=== PATIENT | female | born 1950 | race Caucasian/White ===

== ENCOUNTER → 2018-05-04 | Outpatient (CLI) | payer OTHER ==
[~2018-05-04] MED LIST: AUGMENTIN 875875 MG PO; CARDIZEM CD180 MG PO; CHEST CONGESTI400 MG PO; COUMADIN 2.5MG2.5 M1 PO; COUMADIN 5 MG TA5 M1 PO; DIFLUCAN150 MG PO; ELIQUIS5 MG PO; FLECAINIDE ACET50 M1 PO; INDERAL LA120 M1 PO; INDERAL LA80 MG PO; LEVAQUIN 500 M500 M2 PO; PAXIL20 MG PO; PREDNISONE 20 M20 MG PO; PRILOSEC20 MG PO; PROAIR HFA8.5 GM INH; PROBIOTIC1 EAC1 PO; PROMETHAZINE D480 ML PO; TESSALON PERLE100 MG PO; VITAMIN D1000 UNI1 PO
--- NOTE | 2018-05-04 16:44 | EKG ---
[place] [address] ELECTROCARDIOGRAM REPORT Name: DIAN LOUISE Room: [facility]#: [id number] Admission: 05/04/18 Attend Phys: Derian Soto MD Discharge: Date of : 48 Report #: [id number] THIS REPORT FOR: //name// [facility] Test Date: 2018-05-04 Test Time: 12:54:32 Pat Name: DIAN LOUISE Department: Room: Gender: F Amortization Clerk: : 1950 Requested By: Derian Soto Order Number: [id number] Reading : Akash Patino Measurements Intervals [place] Rate: 61 P: 153 NY: 250 QRS: 1 QRSD: 115 T: 8 QT: 479 QTc: 483 Interpretive Statements Sinus or ectopic atrial rhythm Prolonged [place] interval Nonspecific intraventricular conduction delay Compared to ECG 07/11/2015 09:01:1 First degree AV block now present Intraventricular conduction delay now present Atrial fibrillation no longer present Myocardial infarct finding no longer present Electronically Signed On 05-04-2018 16:43:51 ENGINEERING TECHNOLOGY INSTRUCTOR by Akash Patino [email or web address] <ELECTRONICALLY SIGNED> By: Akash Patino MD, [facility] 05/04/18 1643 1254 1254 Akash Patino MD, [facility] /EPI
--- NOTE | 2018-05-04 18:01 | NUR ---
PATIENT SEEN FOR CARDIOVERSION FOR DR. MCKEON. HOOKED PATIENT UP TO MONITOR ANF PATIENT IN SINUS RHYTHM. EKG DONE FOR CONFIRMATION. SHOWN TO DR. MCKEON AND Melissa VALLE STATED OK TO SEND PATIENT HOME WITHOUT CARDIOVERSION DUE TO SINUS RHYTHM. NO PROCEDURE DONE EXEPT EKG.
== END ==
LOC: M.CL 12:00
DX: I48.0 Paroxysmal atrial fibrillation (principal); D68.61 Antiphospholipid syndrome; E11.9 Type 2 diabetes mellitus without complications; G43.909 Migraine, unspecified, not intractable, without status migrainosus; Z90.710 Acquired absence of both cervix and uterus; Z88.8 Allergy status to other drugs, medicaments and biological substances

== ENCOUNTER 2018-08-19 13:32 | Emergency (ER) | payer OTHER ==
[~2018-08-19] VITALS: Ht 167.6 cm; Wt 113.4 kg
[2018-08-19] MEDS ORDERED: ACETAMINOPHEN-1 EAC1 PO (15:40)
[2018-08-19 16:24] VITALS: BP 137/75
== END 2018-08-19 16:15 | disposition home or self-care (01) ==
LOC: M.ERS 13:32
DX: S16.1XXA Strain of muscle, fascia and tendon at neck level, initial encounter (principal); S00.83XA Contusion of other part of head, initial encounter; J34.89 Other specified disorders of nose and nasal sinuses; I48.91 Unspecified atrial fibrillation; E11.9 Type 2 diabetes mellitus without complications; M32.9 Systemic lupus erythematosus, unspecified; Z88.1 Allergy status to other antibiotic agents; Z88.8 Allergy status to other drugs, medicaments and biological substances; Z86.718 Personal history of other venous thrombosis and embolism; W18.39XA Other fall on same level, initial encounter; Y93.89 Activity, other specified; Y92.89 Other specified places as the place of occurrence of the external cause; Y99.8 Other external cause status

== ENCOUNTER 2018-11-17 21:57 | Emergency (ER) | payer OTHER ==
[~2018-11-17] VITALS: Ht 170.2 cm; Wt 113.0 kg
[~2018-11-17 21:57] MED LIST changes: +ACETAMINOPHEN-1 EAC1 PO
[2018-11-17 22:18] LABS: ABSOLUTE BASOPHILS 0.1 thou/uL (0.0-0.2); ABSOLUTE EOSINOPHILS 0.3 thou/uL (0.0-0.7); ABSOLUTE LYMPHOCYTES 2.8 thou/uL (0.8-5.3); ABSOLUTE MONOCYTES 0.7 thou/uL (0.0-1.2); ABSOLUTE NEUTROPHILS 5.6 thou/uL (1.6-8.1); BASOPHILS 1.2 %; EOSINOPHILS 2.8 %; HEMATOCRIT 41.4 % (37.0-47.0); LYMPHOCYTES 29.5 %; MCH 31.2 pg (26.0-34.0); MCHC 33.9 g/dL (28.0-37.0); MCV 92.1 fL (80.0-100.0); MONOCYTES 7.2 %; MPV 8.7 fl. (7.2-11.1); NUCLEATED RBCS 0 /100WBC; PLATELET COUNT* 235 thou/uL (150-400); POLYS 59.3 %; WBC 9.5 thou/uL (4.0-11.0)
[2018-11-17 22:31] LABS: URINE BILIRUBIN NEGATIVE (Negative); URINE BLOOD 1+ (Negative); URINE CLARITY CLEAR; URINE COLOR YELLOW; URINE GLUCOSE-RANDOM NEGATIVE (Negative); URINE KETONES NEGATIVE (Negative); URINE LEUKOCYTES-REFLEX TRACE (Negative); URINE NITRITE-REFLEX NEGATIVE (Negative); URINE PROTEIN 1+ (Negative); URINE SPECIFIC GRAVITY 1.025 (1.005-1.030); URINE UROBILINOGEN 0.2 E.U./dl (0.2-1.0)
[2018-11-17 22:33] LABS: ANION GAP 9 mmol/L (7-16); BUN 18 mg/dL (7-18); CHLORIDE 107 mmol/L (98-107); CO2 29 mmol/L (21-32); GLUCOSE 128 mg/dL (70-99); POTASSIUM 3.9 mmol/L (3.5-5.1); SODIUM 145 mmol/L (136-145)
[2018-11-17 22:39] LABS: PROTIME 10.3 Seconds (9.20-11.50)
[2018-11-17 22:39] LABS: SQUAMOUS 0-3 Few /LPF (0-3); URINE WBC-REFLEX 6-15 Few /HPF (0-5)
[2018-11-17 22:40] LABS: BACTERIA-REFLEX 1-9 Few /HPF (None Seen); CASTS None Seen /LPF (None Seen); CRYSTALS None Seen /LPF (None Seen); URINE RBC 0-2 Rare /HPF (0-2)
[2018-11-17 22:51] LABS: ALBUMIN 3.2 g/dL (3.4-5.0); ALKALINE PHOSPHATASE 86 U/L (46-116); NT-PRO BRAIN NAT PEPTIDE 312 pg/mL (<300); SGOT 16 U/L (15-37); SGPT 23 U/L (30-65); TOTAL BILIRUBIN 0.7 mg/dL (<0.1-1.0); TOTAL PROTEIN 7.6 g/dL (6.4-8.2); TROPONIN-I LEVEL <0.06 ng/mL (<0.06)
[2018-11-18 02:06] VITALS: BP 150/91
== END 2018-11-18 02:08 | disposition home or self-care (01) ==
LOC: M.ERS 21:57
PROVIDERS: Emergency Medicine
DX: I48.92 Unspecified atrial flutter (principal); E11.9 Type 2 diabetes mellitus without complications; I42.9 Cardiomyopathy, unspecified; Z88.1 Allergy status to other antibiotic agents; Z91.048 Other nonmedicinal substance allergy status; Z88.8 Allergy status to other drugs, medicaments and biological substances; Z86.718 Personal history of other venous thrombosis and embolism

== ENCOUNTER → 2019-04-24 | Outpatient (CLI) | payer OTHER ==
--- NOTE | 2019-04-24 13:45 | 2DMMODE ---
[place] [address] 2 D/M-MODE ECHOCARDIOGRAM Name: DIAN LOUISE Room: [facility]#: [id number] Admission: 04/24/19 Attend Phys: Derian Soto, Discharge: Date of : 48 Date of Service: 04/24/19 1345 Report #: [id number] THIS REPORT FOR: //name// APPROVED REPORT Study performed: 04/24/2019 11:10:48 EXAM: Comprehensive 2D, Doppler, and color-flow Echocardiogram Patient Location: Out-Patient BSA: 2.19 HR: 57 bpm BP: 131/60 mmHg Other Information Study Quality: Good Indications Atrial Fibrillation 2D Dimensions IVSd: 11.19 (7-11mm) LVOT Diam: 19.87 (18-24mm) LVDd: 44.06 mm PWd: 10.06 (7-11mm) Ascending Ao: 32.37 (22-36mm) LVDs: 26.77 (25-40mm) Aortic Root: 27.70 mm Volumes Left Atrial Volume (Systole) LA ESV Index: 18.50 mL/m2 Aortic Valve AoV Peak Mark.: 1.36 m/s AO Peak Gr.: 7.36 mmHg LVOT Max P.51 mmHg AO Mean Gr.: 4.25 mmHg LVOT Mean P.84 mmHg LVOT Max V: 1.06 m/s AO V2 VTI: 31.64 cm LVOT Mean V: 0.60 m/s BOYD (VTI): 2.54 cm2 LVOT V1 VTI: 25.94 cm Mitral Valve E/A Ratio: 0.76 MV Decel. Time: 227.91 ms MV E Max Mark.: 0.47 m/s MV PHT: 66.09 ms MVA (PHT): 3.33 [place]2 [place] [address] 2 D/M-MODE ECHOCARDIOGRAM Name: DIAN LOUISE Room: [facility]#: [id number] Admission: 04/24/19 Attend Phys: Derian Soto, Discharge: Date of : 48 Date of Service: 04/24/19 1345 Report #: [id number] TDI E/Lateral E': 5.22 E/Medial E': 5.88 Medial E' Mark.: 0.08 m/s Lateral E' Mark.: 0.09 m/s Pulmonary Valve PV Peak Mark.: 1.02 m/s PV Peak Gr.: 4.19 mmHg Tricuspid Valve RAP Estimate: 5.00 mmHg TR Peak Gr.: 16.40 mmHg RVSP: 21.40 mmHg PA Pressure: 21.40 mmHg Left Ventricle The left ventricle is normal size. There is normal LV segmental wall motion. There is normal left ventricular wall thickness. Left ventricular systolic function is normal. The left ventricular ejection fraction is within the normal range. LVEF is 55-60%. Grade I - abnormal relaxation pattern. Right Ventricle The right ventricle is normal size. The right ventricular systolic function is normal. Atria The left atrium size is normal. The right atrium size is normal. Aortic Valve The aortic valve is normal in structure. No aortic regurgitation is present. There is no aortic valvular stenosis. Mitral Valve The mitral valve is normal in structure. There is no mitral valve regurgitation noted. No evidence of mitral valve stenosis. Tricuspid Valve The tricuspid valve is normal in structure. Mild tricuspid regurgitation. estimated pa pressure 20 mm Hg Pulmonic Valve The pulmonary valve is normal in structure. There is no pulmonic valvular regurgitation[place] [address] 2 D/M-MODE ECHOCARDIOGRAM Name: DIAN LOUISE Room: [facility]#: [id number] Admission: 04/24/19 Attend Phys: Derian Soto, Discharge: Date of : 48 Date of Service: 04/24/19 1345 Report #: [id number] The aortic root is normal in size. IVC is normal in size and collapses >50% with inspiration. Pericardium There is no pericardial effusion. <Conclusion> Left ventricular systolic function is normal. The left ventricular ejection fraction is within the normal range. <ELECTRONICALLY SIGNED> By: Jamie Ro MD, FACC 04/24/19 1345 1345 Jamie Ro MD, FACC /INF
== END ==
LOC: M.CRD 11:00
DX: I36.1 Nonrheumatic tricuspid (valve) insufficiency (principal); I48.0 Paroxysmal atrial fibrillation

== ENCOUNTER → 2020-07-30 | Outpatient (CLI) | payer OTHER | LOC: M.WC 12:48 | PROVIDERS: ATTEND Podiatrist Foot & Ankle Surgery | DX: E11.621 Type 2 diabetes mellitus with foot ulcer (principal); L97.511 Non-pressure chronic ulcer of other part of right foot limited to breakdown of skin; L84 Corns and callosities; E11.42 Type 2 diabetes mellitus with diabetic polyneuropathy; I87.2 Venous insufficiency (chronic) (peripheral); K21.9 Gastro-esophageal reflux disease without esophagitis; M20.40 Other hammer toe(s) (acquired), unspecified foot; Z90.710 Acquired absence of both cervix and uterus ==

== ENCOUNTER → 2020-08-13 | Outpatient (CLI) | payer OTHER | LOC: M.WC 12:58 | PROVIDERS: ATTEND Podiatrist Foot & Ankle Surgery | DX: E11.621 Type 2 diabetes mellitus with foot ulcer (principal); L97.511 Non-pressure chronic ulcer of other part of right foot limited to breakdown of skin; L84 Corns and callosities; L03.031 Cellulitis of right toe; B35.1 Tinea unguium; E11.42 Type 2 diabetes mellitus with diabetic polyneuropathy; I87.2 Venous insufficiency (chronic) (peripheral); K21.9 Gastro-esophageal reflux disease without esophagitis; M20.41 Other hammer toe(s) (acquired), right foot; Z90.710 Acquired absence of both cervix and uterus ==

== ENCOUNTER → 2020-08-20 | Outpatient (CLI) | payer OTHER | LOC: M.WC 12:38 | PROVIDERS: ATTEND Podiatrist Foot & Ankle Surgery | DX: E11.621 Type 2 diabetes mellitus with foot ulcer (principal); L97.512 Non-pressure chronic ulcer of other part of right foot with fat layer exposed; L84 Corns and callosities; L03.031 Cellulitis of right toe; B35.1 Tinea unguium; E11.40 Type 2 diabetes mellitus with diabetic neuropathy, unspecified; I87.2 Venous insufficiency (chronic) (peripheral); K21.9 Gastro-esophageal reflux disease without esophagitis; M20.41 Other hammer toe(s) (acquired), right foot ==

== ENCOUNTER 2020-08-26 21:13 | Inpatient (IN) | payer OTHER ==
[~2020-08-26] VITALS: Ht 167.6 cm; Wt 101.6 kg
[2020-08-26 21:16] VITALS: BP 152/64
[2020-08-26 21:48] LABS: URINE BILIRUBIN NEGATIVE (Negative); URINE BLOOD 1+ (Negative); URINE CLARITY CLEAR; URINE COLOR YELLOW; URINE GLUCOSE-RANDOM NEGATIVE (Negative); URINE KETONES NEGATIVE (Negative); URINE LEUKOCYTES-REFLEX NEGATIVE (Negative); URINE NITRITE-REFLEX NEGATIVE (Negative); URINE PROTEIN 1+ (Negative); URINE SPECIFIC GRAVITY 1.015 (1.005-1.030); URINE UROBILINOGEN 0.2 E.U./dl (0.2-1.0)
[2020-08-26 21:50] LABS: BE 0.2 mmol/L (-2 to +3); PCO2 32.5 mmHg (35.0-45.0); PO2 65.1 mmHg (75.0-100.0)
[2020-08-26 21:54] LABS: SQUAMOUS 0-3 Few /LPF (0-3)
[2020-08-26 21:55] LABS: BACTERIA-REFLEX None Seen /HPF (None Seen); CRYSTALS None Seen /LPF (None Seen); HYALINE CASTS 0-3 Few /LPF (None Seen); URINE RBC 3-10 Few /HPF (0-2); URINE WBC-REFLEX 0-5 Rare /HPF (0-5)
[2020-08-26 21:56] LABS: HEMOGLOBIN 13.2 gm/dL (12.0-15.0); MCH 30.4 pg (26.0-34.0); MCHC 32.9 g/dL (28.0-37.0); MCV 92.5 fL (80.0-100.0); MPV 8.9 fl. (7.2-11.1); NUCLEATED RBCS 0 /100WBC; PLATELET COUNT* 245 thou/uL (150-400); RBC 4.33 mil/uL (4.20-5.00); RDW-CV 13.6 % (10.5-14.5); WBC 12.9 thou/uL (4.0-11.0)
[2020-08-26 21:56] LABS: MUCUS None Seen strn/LPF (None Seen)
[2020-08-26 22:03] LABS: CALCIUM 8.3 mg/dL (8.5-10.1); CREATININE 1.1 mg/dL (0.6-1.3); POTASSIUM 3.7 mmol/L (3.5-5.1)
[2020-08-26 22:07] LABS: ALBUMIN 2.9 g/dL (3.4-5.0); MAGNESIUM 1.6 mg/dL (1.8-2.4); TOTAL BILIRUBIN 1.2 mg/dL (<0.1-1.0); TOTAL PROTEIN 7.3 g/dL (6.4-8.2)
[2020-08-26 22:26] LABS: ABSOLUTE LYMPHOCYTES 0.8 thou/uL (0.8-5.3); ABSOLUTE MONOCYTES 0.4 thou/uL (0.0-1.2); ABSOLUTE NEUTROPHILS 11.7 thou/uL (1.6-8.1)
[2020-08-26 22:27] LABS: PLATELET ESTIMATE ADEQUATE
[2020-08-26] MEDS ORDERED: ZOLOFT25 MG PO (23:08)
[2020-08-27] VITALS (15 sets, daily range): BP systolic 114–154; BP diastolic 45–96
[2020-08-27 00:19] LABS: INR 1.1; PROTIME 11.7 Seconds (9.20-11.50)
--- NOTE | 2020-08-27 08:12 | NUR ---
SPOKE WITH AT BEDSIDE AND HE STATED HE CANT GO HOME BECAUSE HIS REMINDS HIM TO EAT EVERY 3 HOURS AND CHECK BLOOD GLUCOSE. INFORM THAT IN THE PT'S CURRENT CONDITION OF AMS SHE WILL NOT BE ABLE TO THAT. STATED THAT HIS CHILDREN LIVE OUT OF STATE AND THEY HAVE NO FAMILY IN STATE TO HELP WITH CARE. PT GAVE PHONE NUMBER OF NEIGHBOR CHAPARRO MARTINEZ [phone] WHO MAYBE WILLING TO HELP OUT.
--- NOTE | 2020-08-27 11:24 | EKG ---
[place] [address] ELECTROCARDIOGRAM REPORT Name: DIAN LOUISE Room: [address] IN ..#: [id number] Admission: 08/27/20 Attend Phys: Julianna Leahy, Discharge: Date of : 48 Date of Service: 08/26/202115 Report #: [id number] THIS REPORT FOR: //name// [facility] ED Test Date: 2020-08-26 Test Time: 21:16:45 Pat Name: DIAN LOUISE Department: Room: Gender: F Parts Identifier: CO : 1950 Requested By: Zee Marroquin Order Number: [id number] MD: Jamie Ro Measurements Intervals [place] Rate: 70 P: 39 UT: 230 QRS: 2 QRSD: 110 T: -3 QT: 586 QTc: 633 Interpretive Statements Sinus rhythm Prolonged [place] interval Borderline low voltage, extremity leads septal infarct, old Prolonged QT interval Compared to ECG 11/17/2018 23:10:22 Atrial flutter no longer present Myocardial infarct finding still present Electronically Signed On 08-27-2020 11:24:23 CDT by Jamie Ro [email or web address] <ELECTRONICALLY SIGNED> By: Jamie Ro MD, [facility] 08/27/20 1124 15 15 Jamie Ro MD, [facility] /EPI
--- NOTE | 2020-08-27 11:41 | NUR ---
Spoke with (Avelino) over the phone. Introduced role of CM. Patient is currently a PUI for COVID-19 and the is staying in the room with the patient at this time. Patient does currently reside at home with her and per nursing is the caregiver to the . There are a few stairs to get into the house. Patient is currently on 3L NC and has a sitter due to AMS and pulling at equipment. Therapies to be ordered for patient to assess any discharge needs. Patient does have a PCP-Stefani Cleveland MD-[phone]. Patient does use a cane to ambulate and patient was able to complete ADL's independently prior to admission. Patient is able to drive. No DPOA paperwork. No hx of HH, SNF or Rehab. stated that in 2013 they had in home caregivers for a short period of time (doesn't recall company). Therapies to be ordered for patient to help with discharge planning. Possible downgrade to tele later today. Avelino Thompson () [phone]-cell CM to continue to follow for safe dc planning.
--- NOTE | 2020-08-27 14:48 | NUR ---
REPORT GIVEN TO SANDHYA DYKES.
--- NOTE | 2020-08-27 15:30 | NUR ---
PT TRANSFERRED TO TELE ROOM 219 VIA REPORT FROM SHIRA BUSINESS DEVELOPMENT REPRESENTATIVE.
[2020-08-28 00:16] VITALS: BP 135/63
--- NOTE | 2020-08-28 03:58 | NUR ---
ASSUMED CARE OF PT AT 1900. PT WAS ALERT AND ORIENTED X'S 3. SHE WAS CONFUSED TO SITUATION. PT WAS ALSO VERY SLEEPY. AT ABOUT 0100, WHILE CHECKING ON THE PT. SHE WAS COMPLETELY ORIENTED AND FULLY AWAKE. VSS. PERRLA. NO COMPLAINTS OF PAIN. PT IS IN SINUS RYTHM ON THE TELEMETRY. PT IS RESTING COMFORTABLY IN BED. RESPIRATIONS ARE EVEN AND NONLABORED. WILL CONTINUE TO MONITOR PT.
[2020-08-28 04:21] LABS: HEMATOCRIT 36.7 % (37.0-47.0); HEMOGLOBIN 12.5 gm/dL (12.0-15.0); MCV 91.3 fL (80.0-100.0); MPV 9.4 fl. (7.2-11.1); RBC 4.03 mil/uL (4.20-5.00); RDW-CV 13.8 % (10.5-14.5); WBC 10.1 thou/uL (4.0-11.0)
[2020-08-28 04:29] LABS: CALCIUM 8.1 mg/dL (8.5-10.1); CREATININE 0.9 mg/dL (0.6-1.3)
[2020-08-28 05:32] VITALS: BP 134/71
[2020-08-28 08:05] VITALS: BP 130/82
[2020-08-28 12:00] VITALS: BP 127/60
--- NOTE | 2020-08-28 13:24 | NUR ---
PLAN OF CARE: PT IS AN ICU TX. PT CURRENTLY IN 2 ABT'S. PT MAY BENEFIT FROM HH AT D/C. CM WILL REMAIN AVAILABLE TO ASSIST AND FOLLOW NEEDED.
--- NOTE | 2020-08-28 14:15 | NUR ---
RIGHT BASISLIC VESSEL ACCESSED FOR 4 GUATEMALAN SINGL LUMEN PICC. LINE PRE-TRIMMED TO 45CM AND ADVANCED TO THE ZERO GILBERTO WITH NO RESISTANCE MET. UPPER ARM CIRCUMFERENCE ABOVE INSERTION SITE= 15". SHERLOCK MAGNET AND 3CG CONFIRMATION OF TIP TERMINATION AT THE CAVOATRIAL JUNCTION APPRECIATED. GUIDEWIRE REMOVED, LINE FLUSHED AND INSERTION SITE DRESSED. REPORT GIVEN TO ARUN DYKES.
[2020-08-28 16:00] VITALS: BP 115/57
[2020-08-28 20:00] VITALS: BP 133/64
--- NOTE | 2020-08-28 20:00 | NUR ---
RECEIVED REPORT AND ASSUMED CARE OF PT, ASSESSMENT COMPLETED. RESTING IN BED WATCHING TV. C/O HEADACHE, WILL GIVE TYLENOL. RT FOOT 4TH TOE NOTED TO BE EDEMATOUS, WOUND NOTE TO BOTTOM OF TOE. TELEMETRY ON SHOWING SR WITH 1ST AVB. WILL CONT TO MONITOR AND ASSIST NEEDED.
[2020-08-29] VITALS: BP 137/61
[2020-08-29 04:26] VITALS: BP 141/66
--- NOTE | 2020-08-29 05:43 | NUR ---
AWAKE OCC DURING NIGHT. ASSISTED TO BSC ATTEMPTING TO HAVE BOWEL MOVEMENT. NO CHANGE IN ASSESSMENT. TYLENOL EFFECTIVE FOR C/O VELAZQUEZ. HS GOALS OF REST AND SAFETY ACHIEVED. HOURLY ROUNDING OBSERVED.
[2020-08-29 05:45] LABS: HEMATOCRIT 34.6 % (37.0-47.0); HEMOGLOBIN 11.8 gm/dL (12.0-15.0); MCH 31.2 pg (26.0-34.0); MCV 91.8 fL (80.0-100.0); MPV 8.7 fl. (7.2-11.1); RBC 3.77 mil/uL (4.20-5.00); RDW-CV 13.9 % (10.5-14.5); WBC 7.7 thou/uL (4.0-11.0)
[2020-08-29 05:59] LABS: CALCIUM 8.6 mg/dL (8.5-10.1); CREATININE 0.9 mg/dL (0.6-1.3); POTASSIUM 3.7 mmol/L (3.5-5.1)
[2020-08-29 07:55] VITALS: BP 177/63
--- NOTE | 2020-08-29 08:30 | 2DMMODE ---
[place] [address] 2 D/M-MODE ECHOCARDIOGRAM Name: DIAN LOUISE Room: [address] IN [facility]#: [id number] Admission: 08/27/20 Attend Phys: Julianna Leahy, Discharge: Date of : 48 Date of Service: 08/29/20 0830 Report #: [id number] THIS REPORT FOR: cc: Megha Ko MD, Marjon MD Liston, Michael J. MD [facility] ~ ADDENDUM APPROVED REPORT Study performed: 08/28/2020 14:53:58 EXAM: Comprehensive 2D, Doppler, and color-flow Echocardiogram Patient Location: In-[facility] Status: routine BSA: 2.05 HR: 63 bpm BP: 127/60 mmHg Rhythm: NSR Other Information Study Quality: Good Indications Congestive Heart Failure 2D Dimensions IVSd: 10.03 (7-11mm) LVOT Diam: 21.12 (18-24mm) LVDd: 50.38 mm PWd: 9.87 (7-11mm) Ascending Ao: 34.22 (22-36mm) LVDs: 26.56 (25-40mm) Aortic Root: 30.19 mm Aortic Valve AoV Peak Mark.: 1.55 m/s AO Peak Gr.: 9.64 mmHg LVOT Max P.28 mmHg AO Mean Gr.: 5.04 mmHg LVOT Mean P.48 mmHg LVOT Max V: 1.25 m/s AO V2 VTI: 30.75 cm LVOT Mean V: 0.70 m/s BOYD (VTI): 2.78 cm2 LVOT V1 VTI: 24.41 cm Mitral Valve E/A Ratio: 1.41 MV Decel. Time: 252.78 ms MV E Max Mark.: 0.72 m/[place] [address] 2 D/M-MODE ECHOCARDIOGRAM Name: DIAN LOUISE Room: [address] IN ..#: [id number] Admission: 08/27/20 Attend Phys: Julianna Leahy, Discharge: Date of : 48 Date of Service: 08/29/20 0830 Report #: [id number] MV PHT: 73.31 ms MVA (PHT): 3.00 cm2 TDI E/Lateral E': 6.55 E/Medial E': 6.55 Medial E' Mark.: 0.11 m/s Lateral E' Mark.: 0.11 m/s Pulmonary Valve PV Peak Mark.: 1.13 m/s PV Peak Gr.: 5.11 mmHg Tricuspid Valve RAP Estimate: 5.00 mmHg TR Peak Gr.: 26.98 mmHg RVSP: 31.00 mmHg PA Pressure: 31.00 mmHg Left Ventricle The left ventricle is normal size. There is normal LV segmental wall motion. There is normal left ventricular wall thickness. Left ventricular systolic function is normal. LVEF is 55-60%. Grade II - pseudonormal filling dynamics. Right Ventricle The right ventricle is normal size. The right ventricular systolic function is normal. Atria Left atrium is mildly dilated. The right atrium size is normal. Aortic Valve Mild aortic valve sclerosis. No aortic regurgitation is present. There is no aortic valvular stenosis. Mitral Valve The mitral valve is normal in structure. There is no mitral valve regurgitation noted. No evidence of mitral valve stenosis. Tricuspid Valve The tricuspid valve is normal in structure. Trace tricuspid regurgitation. Borderline pulmonary hypertension. Pulmonic Valve The pulmonary valve is normal in structure. There is no pulmonic valvular [place] [address] 2 D/M-MODE ECHOCARDIOGRAM Name: DIAN LOUISE Room: [address] IN [facility]#: [id number] Admission: 08/27/20 Attend Phys: Julianna Leahy, Discharge: Date of : 48 Date of Service: 08/29/20 0830 Report #: [id number] Great Vessels The aortic root is normal in size. IVC is normal in size and collapses >50% with inspiration. Pericardium There is no pericardial effusion. <Conclusion> The left ventricle is normal size. There is normal left ventricular wall thickness. Left ventricular systolic function is normal. LVEF is 55-60%. Grade II - pseudonormal filling dynamics. There is normal LV segmental wall motion. Trace tricuspid regurgitation. Borderline pulmonary hypertension. IVC is normal in size and collapses >50% with inspiration. Left atrium is mildly dilated. <ELECTRONICALLY SIGNED> By: Derian Soto MD, FACC 08/29/20829 9 9 Derian Soto MD, FACC /INF
--- NOTE | 2020-08-29 10:11 | NUR ---
ASSUMED CARE OF PT AT 0730. PT RESTING IN BED WAITING FOR BREAKFAST. A&0X4, COMPLAINS OF PAIN TO RIGHT KNEE-TREATED WITH PRN TYLENOL WITH PARTIAL RELIEF. TRACING SB WITH FIRST DEGREE ON THE PRESCHOOL ASSISTANT DIRECTOR. ON RA SAT UPPER 90'S. DENIES ANY SHORTNESS OF BREATH. SMITH CATHETER IN PLACE-NOT INDICATED-REMOVED PER HOSPITAL PROTOCOL. PT UP WITH SBA TO BSC. PT GOAL FOR TODAY IS PAIN MGMT, MRI FOOT AND IV ABX. AM ASSESSMENT CHARTED. MEDICATIONS PER JUN. PT REPOSITIONS SELF. HOURLY ROUNDING OBSERVED. BED IN LOW POSITION. CALL LIGHT WITHIN REACH. WILL CONTINUE PLAN OF CARE.
[2020-08-29 13:40] VITALS: BP 147/72
--- NOTE | 2020-08-29 13:53 | NUR ---
PLAN OF CARE: PLAN FOR PT TO REMAIN INPT THROUGH THE WEEKEND. PT REMAINS ON 2 IV ABT'S. PRIOR TO ADMIT PT ACTIVE AND INDEPENDENT. HOWEVER PT MAY BENEFIT FROM HH AT D/C. CM WILL REMAIN AVAILABLE TO ASSIST AND FOLLOW NEEDED.
--- NOTE | 2020-08-29 14:07 | NUR ---
WOUND NURSE: PATIENT SEEN TO ADDRESS LESION ON RIHT 4TH TOE. CURRENLY NOT OPEN OR DRAINING INTACT SMALL SCAB WITH CALLOUS NOTED. MRI SUGGESTING OSTEO. SHARED THIS INFO WITH DR SANCHEZ, BONG. WILL MAINTAIN HEATER FURNACE FOR NOW UNLESS DR SANCHEZ CHOOSES OTHERWISE. WAITING TO HEAR FROM HIM.
[2020-08-29 18:30] VITALS: BP 145/77
[2020-08-29 20:00] VITALS: BP 141/90
[2020-08-30 00:28] VITALS: BP 145/87
[2020-08-30 04:42] LABS: HEMATOCRIT 37.4 % (37.0-47.0); HEMOGLOBIN 12.6 gm/dL (12.0-15.0); MCH 30.8 pg (26.0-34.0); MCHC 33.7 g/dL (28.0-37.0); MCV 91.5 fL (80.0-100.0); MPV 9.2 fl. (7.2-11.1); RBC 4.09 mil/uL (4.20-5.00); RDW-CV 13.8 % (10.5-14.5); WBC 9.1 thou/uL (4.0-11.0)
[2020-08-30 04:56] VITALS: BP 148/75
[2020-08-30 05:00] LABS: CALCIUM 8.8 mg/dL (8.5-10.1); CREATININE 0.8 mg/dL (0.6-1.3); POTASSIUM 3.7 mmol/L (3.5-5.1)
[2020-08-30 08:00] VITALS: BP 125/65
[2020-08-30 11:30] VITALS: BP 111/60
[2020-08-30 16:00] VITALS: BP 119/64
[2020-08-30 20:00] VITALS: BP 130/70
--- NOTE | 2020-08-30 20:33 | NUR ---
patient report given to maintenance supervisor 2nd shift nurse. Patient resting in room with family. IV antibiotics infusing. A&O x 4. call light with in reach.
[2020-08-31 00:38] VITALS: BP 137/71
[2020-08-31 04:06] VITALS: BP 130/59
[2020-08-31 06:21] LABS: HEMATOCRIT 35.4 % (37.0-47.0); MCHC 33.8 g/dL (28.0-37.0); MCV 91.9 fL (80.0-100.0); MPV 8.4 fl. (7.2-11.1); RBC 3.85 mil/uL (4.20-5.00); RDW-CV 14.1 % (10.5-14.5); WBC 11.1 thou/uL (4.0-11.0)
[2020-08-31 06:40] LABS: CALCIUM 8.6 mg/dL (8.5-10.1); CREATININE 1.3 mg/dL (0.6-1.3); POTASSIUM 3.6 mmol/L (3.5-5.1)
[2020-08-31 08:00] VITALS: BP 156/68
[2020-08-31 12:00] VITALS: BP 149/66
--- NOTE | 2020-08-31 15:38 | NUR ---
Patient resting in room with visiting. IV antibiotics running, bed alarm on, call light and all belongings. Continue plan of care.
[2020-08-31 16:00] VITALS: BP 145/69
[2020-08-31 20:00] VITALS: BP 138/69
--- NOTE | 2020-08-31 20:00 | NUR ---
RECEIVED REPORT AND ASSUMED CARE OF PT, ASSESSMENT COMPLETED. VISITING WITH FAMILY AND LAUGHING. TELEMETRY ON SHOWING SR WITH 1ST AVB. WILL CONT TO MONITOR AND ASSIST NEEDED.
[2020-09-01] VITALS: BP 115/52
[2020-09-01 04:00] VITALS: BP 136/57
[2020-09-01 04:45] LABS: HEMOGLOBIN 11.3 gm/dL (12.0-15.0); MCH 31.3 pg (26.0-34.0); MCHC 34.1 g/dL (28.0-37.0); MCV 91.8 fL (80.0-100.0); MPV 8.8 fl. (7.2-11.1); RBC 3.6 mil/uL (4.20-5.00); RDW-CV 13.7 % (10.5-14.5); WBC 9.1 thou/uL (4.0-11.0)
[2020-09-01 04:52] LABS: CALCIUM 8.5 mg/dL (8.5-10.1); POTASSIUM 3.8 mmol/L (3.5-5.1)
[2020-09-01 04:55] LABS: CREATININE 2.7 mg/dL (0.6-1.3)
[2020-09-01 04:57] LABS: APTT 23.4 Seconds (25.0-31.3); INR 1.1; PROTIME 11.8 Seconds (9.20-11.50)
--- NOTE | 2020-09-01 07:47 | NUR ---
SLEPT WELL TONIGHT. NPO SINCE PR FOR POSS SURGERY TODAY. ASSISTED TO BSC. ASSESSMENT UNCHANGED. TELEMETRY CONT TO SHOW SR WITH 1ST AVB. HS GOALS OF REST AND SAFETY ACHIEVED. HOURLY ROUNDING OBSERVED.
[2020-09-01 08:00] VITALS: BP 145/67
--- NOTE | 2020-09-01 13:55 | NUR ---
WOUND NURSE: PATIENT RECEIVED TOE AMPUTATION TODAY BY DR. DANIEL DPM. DRESSING IS CLEAN, DRY, AND INTACT. PATIENT WITHOUT COMPLAINTS OF PAIN OR DISCOMFORT. PATIENT INSTRUCTED ON NUTRITIONAL NEEDS, REPORTABLE SIGNS AND SYMPTOMS WITH GOOD UNDERSTAINDING ACHIEVED. SPOKE WITH DR. DANIEL DPM AND HE WANTS TO FOLLOW UP WITH PATIENT ON TUE NEXT WEEK, SHE IS SCHEDULED FOR 2PM ON 09/10/20. WILL OBTAIN PICS FOR CHART TOMORROW WHEN PLAN TO CHANGE DRESSING.
--- NOTE | 2020-09-01 14:26 | NUR ---
PLAN OF CARE: PLAN FOR THE PT TO TRANSITION TO ORAL ABT'S, AND WEAN PT OFF O2. PT YO F/U WITH PT TO DETERMINE NEED FOR HH AT D/C. PT WILL ALSO NEED A WALKER. CM WILL REMAIN AVAILABLE TO ASSIST AND FOLLOW NEEDED.
[2020-09-01 16:58] VITALS: BP 126/62
--- NOTE | 2020-09-01 18:58 | NUR ---
patient resting in room with family. IV antibiotics running. No pain in surgical foot stated. All belongings with in reach.
[2020-09-01 20:00] VITALS: BP 137/62
[2020-09-02 00:05] VITALS: BP 132/75
[2020-09-02 04:38] LABS: HEMATOCRIT 35.1 % (37.0-47.0); HEMOGLOBIN 11.7 gm/dL (12.0-15.0); MCH 30.9 pg (26.0-34.0); MCHC 33.3 g/dL (28.0-37.0); MCV 92.6 fL (80.0-100.0); MPV 9.2 fl. (7.2-11.1); RBC 3.78 mil/uL (4.20-5.00); RDW-CV 14.1 % (10.5-14.5); WBC 11.4 thou/uL (4.0-11.0)
[2020-09-02 04:47] LABS: CALCIUM 8.9 mg/dL (8.5-10.1); CREATININE 3.6 mg/dL (0.6-1.3); POTASSIUM 3.9 mmol/L (3.5-5.1)
[2020-09-02 04:51] VITALS: BP 127/61
--- NOTE | 2020-09-02 05:00 | NUR ---
PT SLEPT WELL OVERNIGHT. DRSG CDI TO RLE, TOES PINK AND WARM. UP WITH ASSIST TO BEDSIDE COMMODE OVERNIGHT VOIDING WITHOUT DIFFICULTY. HAS DENIED PAIN THIS SHIFT. DEIDRA PICC SL, ABX GIVEN ORDERED. HS ACCUCHECK 93, NO INSULIN INDICATED. AM LABS DRAWN. WOUND CARE FOLLOWING. ABLE TO USE CALL LITE AND MAKE NEEDS KNOWN. AOX4. BED ALARM ON FOR SAFETY OVERNIGHT.
[2020-09-02 07:40] VITALS: BP 142/66
[2020-09-02 11:31] VITALS: BP 126/63
[2020-09-02] MEDS ORDERED: CEPHALEXIN500 MG PO (11:54)
--- NOTE | 2020-09-02 13:58 | NUR ---
per pt, benjamin, pt "needs home with outpatient therapy...pt "doesnt want hh."
[2020-09-02 15:43] VITALS: BP 120/54
--- NOTE | 2020-09-02 17:38 | NUR ---
PT REMAINS ALERT AND ORIENTED. FLUIDS REMAIN INFUSING THROUGH RIGHT UPPER ARM PICC LINE. PT GIVEN PRN MEDICATIONS FOR NAUSEA. PT UP TO THE CHAIR TODAY. RIGHT FOOT REMAINS WRAPPED AND ELEVATED. DRESSING CHANGED BY DR. SANCHEZ TODAY. VSS. WILL CONTINUE TO MONITOR.
[2020-09-02 20:00] VITALS: BP 141/72
[2020-09-03] VITALS (7 sets, daily range): BP systolic 138–174; BP diastolic 62–77
--- NOTE | 2020-09-03 04:53 | NUR ---
ASSUMED CARE OF PT AFTER REPORT AT 1930. PT A&OX4. VSS. PHYSICAL ASSESSMENT COMPLETED AND CHARTED. PT ON RA. PT TRACING SR/SB/1ST DEG/BBB ON TELE. PT ON RA. PT UPSTANDBY TO BS. PT COMPLAINED OF RIGHT KNEE PAIN-MED GIVEN PER MAR. NO EPISODE OF NAUSEA/VOMITING. PT ABLE TO SLEEP WELL ON BED. FALL PRECAUTIONS IN PLACE. CALL LIGHT WITHIN REACH.
--- NOTE | 2020-09-03 09:40 | NUR ---
ASSUMED CARE OF PT AT 0730. PT SITTING UP IN THE RECLINER WAITING FOR BREAKFAST. A&0X4, DENIES ANY PAIN OR SHORTNESS OF BREATH AT THIS TIME. TRACING SR WITH BBB AND FIRST DEGREE ON THE SERVICE PLUMBER. ON RA SAT UPPER 90'S. PT UP WITH SBA TO BATHROOM. IVF. PT GOAL FOR TODAY IS COMPLETE IV ABX AND DISCHARGE PLANNING TO HOME. AM ASSESSMENT CHARTED. MEDICATIONS PER MAR. PT REPOSITIONS SELF. HOURLY ROUNDING OBSERVED. BED IN LOW POSITION. CALL LIGHT WITHIN REACH. WILL CONTINUE PLAN OF CARE.
[2020-09-03 09:52] LABS: CALCIUM 8.5 mg/dL (8.5-10.1); CREATININE 3.7 mg/dL (0.6-1.3); POTASSIUM 4.2 mmol/L (3.5-5.1)
--- NOTE | 2020-09-03 14:24 | NUR ---
PLAN FOR PT TO D/C HOME TODAY WITH SELF-CARE. NO CM D/C PLANNING NEEDS ANTICIAPATED. CM WILL REMAIN AVAILABLE TO ASSIST AND FOLLOW NEEDED.
--- NOTE | 2020-09-03 14:41 | NUR ---
DISCHARGE ORDERS RECEIVED. DISCHARGE INSTRUCTIONS, CARE NOTES, E SCRIPT AND FOLLOW UP APPTS GIVEN TO PT. PT COMMUNIATES UNDERSTANDING OF DISCHARGE TEACHING. UNISAW OPERATOR REMOVED. RIGHT UPPER EXTREMITY PICC LINE REMOVED WITHOUT DIFFICULTY AND PRESSURE DRESSING IN PLACE AT THIS TIME. PT DISCHARGED WITH ALL BELONGINGS AND PAPERWORK VIA WHEELCHAIR WITH NURSING STAFF TO FAMILY OWN PERSONAL VEHICLE.
--- NOTE | 2020-09-04 12:40 | CON ---
[address] [address] CONSULTATION Name: DIAN LOUISE Room: [address] IN [facility].R.#: [id number] Admission: 08/27/20 Attend Phys: Julianna Leahy MD Discharge: 09/03/20 Date of : 48 Report #: [id number] THIS REPORT FOR: cc: Megha Ko MD, Marjon MD Hanon, Daniel R. DPM ~ DOC #: [id number] Chaz Delgado DPM DATE OF CONSULTATION: 08/30/2020 CHIEF COMPLAINT: Followup of ulceration of right distal fourth toe with likely osteomyelitis. HISTORY OF PRESENT ILLNESS: She had an MRI yesterday, which was positive for osteomyelitis to the distal phalanx with no involvement to the middle or proximal phalanges of the right fourth toe. Prior outpatient cultures have grown Proteus mirabilis, she is currently on parental vancomycin and Zosyn with good tolerance. She has been afebrile with stable vital signs. Appetite is good. She relates low-grade pain of the right distal fourth toe. No new labs for review. PHYSICAL EXAMINATION: Dry callus over the distal right fourth toe with low-grade inflammation and no expressible drainage or necrosis. Palpable dorsalis pedis and posterior tibial pulses bilaterally, +3 nonpitting edema to both legs. Onychomycosis without paronychia. Semirigid hammertoe deformities of the 2nd through 5th toes bilateral with mild hallux valgus deformities. IMPRESSION: Osteomyelitis, right distal fourth digit at distal phalange. PLAN: We will plan amputation of the right fourth digit on Tuesday. In the interim, we will initiate physical therapy, partial weightbearing with a walker. BONG Lemons/RALF/ENRIQUE <ELECTRONICALLY SIGNED> By: Chaz Delgado DPM 09/04/20 1240 0836 [id number] Delgado DPM /gilma
--- NOTE | 2020-09-04 12:40 | CON ---
[address] [address] CONSULTATION Name: DIAN LOUISE Room: [address] IN M.R.#: [id number] Admission: 08/27/20 Attend Phys: Julianna Leahy MD Discharge: 09/03/20 Date of : 48 Report #: [id number] THIS REPORT FOR: cc: Megha Ko MD, Marjon MD Hanon, Daniel R. DPM ~ DOC #: [id number] Chaz Delgado DPM DATE OF CONSULTATION: 09/02/2020 CHIEF COMPLAINT: Postoperative day 1 for amputation of right fourth toe with primary closure due to nonhealing ulcer with osteomyelitis. She is on parental vancomycin and Zosyn. She has had increase in creatinine since yesterday. She has remained afebrile. Today, she has some nausea/malaise. Surgical culture showing rare gram-positive cocci on Gram stain. Surgical pathology is pending. Vancomycin was discontinued today by Medicine. LABORATORY DATA: WBC 11.4, RBC 3.78, hemoglobin 11.7, hematocrit 35.1, platelets 202. BUN is 27, creatinine 3.6, glucose 161. PHYSICAL EXAMINATION: VITAL SIGNS: Temperature 97.4, pulse 58, respirations 18, blood pressure 126/63. SKIN: Surgical incision is well coapted with no erythema or cardinal signs of infection. There is no pallor/cyanosis or signs of acute vascular embarrassment. No signs of clinical infection adjacent to the danyelle-incision or foot. IMPRESSION: Status post right fourth toe amputation for osteomyelitis, type 2 diabetes mellitus. PLAN: The incision was cleansed and redressed with sterile gauze and Giacomo bandage. The patient may bear weight to the foot as tolerated for transfers and short distances. I will follow up with her in my office next week. BONG Lemons/[facility] <ELECTRONICALLY SIGNED> By: Chaz Delgado DPM 09/04/20 1240 1107 [id number] Delgado DPM /nt
--- NOTE | 2020-09-04 12:40 | CON ---
[address] [address] CONSULTATION Name: DIAN LOUISE Room: [address] IN M.R.#: [id number] Admission: 08/27/20 Attend Phys: Julianna Leahy MD Discharge: 09/03/20 Date of : 48 Report #: [id number] THIS REPORT FOR: cc: Megha Ko MD, Marjon MD Hanon, Daniel R. DPM ~ DOC #: [id number] Chaz Delgado DPM DATE OF CONSULTATION: 08/28/2020 CHIEF COMPLAINT: The patient known to me from outpatient wound care at [facility] for ulceration to the right 4th toe. Prior culture grew Proteus mirabilis and she was placed on Bactrim single strength, but only took one due to development of subsequent headache. She does not know if she took Bactrim previously, and she attributed the headache to it. She waited several days and took another single-strength Bactrim and developed another headache, and subsequently, she was admitted through the Emergency Department 2 days ago for altered mental status and fevers. X-ray of the right 4th toe was inconclusive for osteomyelitis with no tameka lysis noted. She is on parenteral vancomycin and Zosyn. IMAGING STUDIES: Chest radiograph showed possible CHF with bilateral diffuse interstitial pulmonary edema or pneumonitis. LABORATORY DATA: WBC 10.1, RBC 4.03, hemoglobin 12.5, hematocrit 36.7, platelets 206. BUN 14, creatinine 0.9, glucose of 66. PHYSICAL EXAMINATION: VITAL SIGNS: Temperature 97.0, pulse 63, respirations 17, blood pressure 115/57. EXTREMITIES: Right 4th toe has a dry thin callus over the distal aspect with mild edema and no tameka erythema. There is no drainage/bleeding or fluctuance. The toe has clinically improved since I [facility] saw her [facility]. She has palpable dorsalis pedis and posterior tibial pulses bilaterally. +3 lower extremity edema in both legs. Toenails have onychomycosis. There is no pallor or cyanosis to either extremity, no signs of acute vascular embarrassment. Negative Homans and Persaud sign on both legs. No popliteal or calf tenderness bilaterally. She has rigid hammertoe deformities, 2nd through 5th digits bilaterally, with mild hallux valgus. IMPRESSION: 1. Ulceration with soft tissue infection to right 4th toe, possible osteomyelitis. 2. Type 2 diabetes mellitus, peripheral neuropathy, acute mental status, interstitial [place] [address] CONSULTATION Name: DIAN LOUISE Room: [address] IN .R.#: [id number] Admission: 08/27/20 Attend Phys: Julianna Leahy MD Discharge: 09/03/20 Date of : 48 Report #: [id number] PLAN: No debridement was performed today. I ordered an MRI with contrast to evaluate for osteomyelitis of the right 4th toe. The patient may require digital amputation. BONG Lemons/EARLENE <ELECTRONICALLY SIGNED> By: Chaz Delgado DPM 09/04/20 1240 [id number] Delgado DPM /gilma
--- NOTE | 2020-09-04 12:40 | OP ---
[address] [address] OPERATIVE REPORT Name: DIAN LOUISE Room: [address] IN M.R.#: [id number] Admission: 08/27/20 Attend Phys: Julianna Leahy MD Discharge: 09/03/20 Date of : 48 Report #: [id number] THIS REPORT FOR: cc: Megha Ko MD, Marjon MD Hanon, Daniel R. DPM ~ DOC #: [id number] Chaz Delgado DPM DATE OF SURGERY: 09/01/2020 SURGEON: Chaz Delgado DPM. PREOPERATIVE DIAGNOSIS: Osteomyelitis, right distal fourth toe with rigid hammertoe deformity. POSTOPERATIVE DIAGNOSIS: Osteomyelitis, right distal fourth toe with rigid hammertoe deformity.. PROCEDURE: Amputation, right fourth toe at MTP joint with primary closure. ESTIMATED BLOOD LOSS: Minimal. HEMOSTASIS: Right ankle pneumatic tourniquet at 250 mmHg. SPECIMENS: Right fourth toe. CULTURES: Soft tissue, right fourth toe, aerobic/anaerobic. SUTURES: 3-0 nylon. COMPLICATIONS: None. DESCRIPTION OF PROCEDURE: The patient was brought to the OR and left in her hospital bed with induction of MAC anesthesia. A local anesthetic block was given proximal to the surgical site and a well-padded ankle tourniquet was placed. The extremity was prepped and draped aseptically. After exsanguination and tourniquet inflation, a #15 blade was used to create an elliptical circumferential incision around the base of the second toe where it joins the foot. A combination of sharp dissection and electrocautery were used to disarticulate the toe at the MTP joint. There were no signs of infection at this level. Soft tissue and tendons were debrided to facilitate primary closure. The wound was flushed with sterile saline and dried and closed with 3-0 nylon in simple interrupted fashion. The tourniquet was deflated with normal vascular return. Sterile compressive bandage was applied and the patient left the OR [place] [address] OPERATIVE REPORT Name: DIAN LOUISE Room: [address] IN .R.#: [id number] Admission: 08/27/20 Attend Phys: Julianna Leahy MD Discharge: 09/03/20 Date of : 48 Report #: [id number] BONG Lemons <ELECTRONICALLY SIGNED> By: Chaz Delgado DPM 09/04/20 1240 1243 Ashutosh Delgado DPM /gilma
--- NOTE | 2020-09-05 14:11 | PATH ---
[address] [address] PATHOLOGY RPT PROCEDURE Name: DIAN THOMPSON Room: [address] IN M.R.#: [id number] Admission: 08/27/20 Date of : 48 Discharge: 09/03/20 Report #: [id number] Path Case #: [id number] [facility] Accession Number: [id number] . 01 Material submitted: . toe - RIGHT 4TH TOE. Modifiers: right, fourth . 01 Clinical history: . AMPUTATION OF TOES AMS, HYPXEMIA, PULMONARY INFILTRATES, PULMONARY EDEMA . 02 Diagnosis: Right fourth toe: - Benign toe with distal endophytic hyperkeratotic focus suggesting remote fistula site with mild chronic inflammation, fibrosis and osteomyelitis of distal phalangeal tip. - Proximal disarticulation margin free of osteomyelitis. (BHUPENDRA:abran; 09/04/2020) MBR 09/04/2020 1650 Local . 02 Electronically signed: . Pawan Teresa MD, Pathologist NPI- [id number] . 01 Gross description: . The specimen is received in formalin, labeled "Dian Thompson, right fourth toe". Received is an amputated digit measuring 0.5 x 2.0 x 2.0 cm in greatest dimensions. The bone margin is smooth and concave in appearance, consistent with disarticulation. The bone and soft tissue margins are inked black. The nail is present displaying a light downing and thickened appearance. The distal aspect of the specimen displays a circular defect, with exposed underlying soft tissue, measuring 1.4 x 1.3 cm. A full-thickness longitudinal cross-section is submitted from proximal to distal aspects in cassettes A1 through A3, following decalcification. (CAA; 09/02/2020) . After initial microscopic examination, the remainder of the circular defect at the distal aspect of the toe, to include underlying bone, is submitted in cassettes A4 and A5, following decalcification. (CAA; 09/03/2020) QA/QA 09/03/2020 1623 Local . 02 Pathologist provided ICD-10: R41.82, R09.02, R91.8, J81.1 . 02 CPT . 456470, 484242 Specimen Comment: A courtesy copy of this report has been sent to [phone] [place] [address] PATHOLOGY RPT PROCEDURE Name: DIAN THOMPSON Room: [address] DIS IN M.R.#: [id number] Admission: 08/27/20 Date of : 48 Discharge: 09/03/20 Report #: [id number] Path Case #: [id number] Specimen Comment: Report sent to Performed at: 01 [facility] [place] [address] [facility] [address], [place], [place] [id number] MD Pantera Bearden MD Phone: [phone] Performed at: [address] [facility] [place] [address], [place], [place] [id number] MD Pawan Teresa MD Phone: [phone]
== END 2020-09-03 14:42 | disposition home or self-care (01) | DRG 853 ==
LOC: M.ERS 21:13 → M.TBA-ER 08-27 02:42 → M.ICU 08-27 02:42 → M.2W 08-27 02:42 → M.ICU 08-27 03:22 → M.2W 08-27 15:27
PROVIDERS: Family Medicine; Internal Medicine; Personal Emergency Response Attendant; ADMIT Internal Medicine; ATTEND Internal Medicine
PROC: 05HY33Z Insertion of Infusion Device into Upper Vein, Percutaneous Approach (ICD-10-PCS; principal; 2020-08-28)
PROC: 0Y6M0Z7 Detachment at Right Foot, Complete 4th Ray, Open Approach (ICD-10-PCS; 2020-09-01)
DX: A41.9 Sepsis, unspecified organism (principal); J96.01 Acute respiratory failure with hypoxia; J15.6 Pneumonia due to other Gram-negative bacteria; G93.41 Metabolic encephalopathy; N17.0 Acute kidney failure with tubular necrosis; M86.8X7 Other osteomyelitis, ankle and foot; I42.9 Cardiomyopathy, unspecified; J98.11 Atelectasis; Z20.822 Contact with and (suspected) exposure to COVID-19; I48.91 Unspecified atrial fibrillation; I50.9 Heart failure, unspecified; K80.20 Calculus of gallbladder without cholecystitis without obstruction; E11.42 Type 2 diabetes mellitus with diabetic polyneuropathy; L97.519 Non-pressure chronic ulcer of other part of right foot with unspecified severity; E11.69 Type 2 diabetes mellitus with other specified complication; Z86.718 Personal history of other venous thrombosis and embolism; Z88.1 Allergy status to other antibiotic agents; Z88.8 Allergy status to other drugs, medicaments and biological substances; Z79.899 Other long term (current) drug therapy

== ENCOUNTER → 2020-09-10 | Outpatient (CLI) | payer OTHER ==
[~2020-09-10] MED LIST changes: +CEPHALEXIN500 MG PO; +ZOLOFT25 MG PO
== END ==
LOC: M.WC 13:44
PROVIDERS: ATTEND Podiatrist Foot & Ankle Surgery
DX: T81.89XA Other complications of procedures, not elsewhere classified, initial encounter (principal); E11.621 Type 2 diabetes mellitus with foot ulcer; L97.511 Non-pressure chronic ulcer of other part of right foot limited to breakdown of skin; L84 Corns and callosities; L03.031 Cellulitis of right toe; B35.1 Tinea unguium; E11.40 Type 2 diabetes mellitus with diabetic neuropathy, unspecified; I87.2 Venous insufficiency (chronic) (peripheral); K21.9 Gastro-esophageal reflux disease without esophagitis; M20.41 Other hammer toe(s) (acquired), right foot; Y92.238 Other place in hospital as the place of occurrence of the external cause; Y83.8 Other surgical procedures as the cause of abnormal reaction of the patient, or of later complication, without mention of misadventure at the time of the procedure

== ENCOUNTER → 2020-09-17 | Outpatient (CLI) | payer OTHER | LOC: M.WC 13:04 | PROVIDERS: ATTEND Podiatrist Foot & Ankle Surgery | DX: T81.89XD Other complications of procedures, not elsewhere classified, subsequent encounter (principal); E11.621 Type 2 diabetes mellitus with foot ulcer; L97.511 Non-pressure chronic ulcer of other part of right foot limited to breakdown of skin; L84 Corns and callosities; L03.031 Cellulitis of right toe; B35.1 Tinea unguium; E11.40 Type 2 diabetes mellitus with diabetic neuropathy, unspecified; I87.2 Venous insufficiency (chronic) (peripheral); K21.9 Gastro-esophageal reflux disease without esophagitis; M20.41 Other hammer toe(s) (acquired), right foot; Y83.8 Other surgical procedures as the cause of abnormal reaction of the patient, or of later complication, without mention of misadventure at the time of the procedure ==

== ENCOUNTER → 2020-09-24 | Outpatient (CLI) | payer OTHER | LOC: M.WC 13:01 | PROVIDERS: ATTEND Podiatrist Foot & Ankle Surgery | DX: T87.89 Other complications of amputation stump (principal); E11.621 Type 2 diabetes mellitus with foot ulcer; L97.511 Non-pressure chronic ulcer of other part of right foot limited to breakdown of skin; L84 Corns and callosities; L03.031 Cellulitis of right toe; B35.1 Tinea unguium; E11.40 Type 2 diabetes mellitus with diabetic neuropathy, unspecified; I87.2 Venous insufficiency (chronic) (peripheral); K21.9 Gastro-esophageal reflux disease without esophagitis; M20.41 Other hammer toe(s) (acquired), right foot; Y83.5 Amputation of limb(s) as the cause of abnormal reaction of the patient, or of later complication, without mention of misadventure at the time of the procedure ==

== ENCOUNTER → 2020-10-20 | Outpatient (CLI) | payer OTHER | LOC: M.WC 12:23 | PROVIDERS: ATTEND Podiatrist Foot & Ankle Surgery | DX: T87.89 Other complications of amputation stump (principal); E11.621 Type 2 diabetes mellitus with foot ulcer; L97.512 Non-pressure chronic ulcer of other part of right foot with fat layer exposed; L03.031 Cellulitis of right toe; L84 Corns and callosities; B35.1 Tinea unguium; E11.40 Type 2 diabetes mellitus with diabetic neuropathy, unspecified; I87.2 Venous insufficiency (chronic) (peripheral); K21.9 Gastro-esophageal reflux disease without esophagitis; M20.41 Other hammer toe(s) (acquired), right foot; Y83.5 Amputation of limb(s) as the cause of abnormal reaction of the patient, or of later complication, without mention of misadventure at the time of the procedure ==

== ENCOUNTER → 2020-11-03 | Outpatient (CLI) | payer OTHER | LOC: M.WC 12:30 | PROVIDERS: ATTEND Podiatrist Foot & Ankle Surgery | DX: T87.89 Other complications of amputation stump (principal); E11.621 Type 2 diabetes mellitus with foot ulcer; L97.512 Non-pressure chronic ulcer of other part of right foot with fat layer exposed; L03.031 Cellulitis of right toe; L84 Corns and callosities; B35.1 Tinea unguium; E11.40 Type 2 diabetes mellitus with diabetic neuropathy, unspecified; I87.2 Venous insufficiency (chronic) (peripheral); K21.9 Gastro-esophageal reflux disease without esophagitis; M20.41 Other hammer toe(s) (acquired), right foot; Y83.5 Amputation of limb(s) as the cause of abnormal reaction of the patient, or of later complication, without mention of misadventure at the time of the procedure ==

== ENCOUNTER → 2020-11-10 | Outpatient (CLI) | payer OTHER | LOC: M.WC 13:00 | PROVIDERS: ATTEND Podiatrist Foot & Ankle Surgery | DX: T87.81 Dehiscence of amputation stump (principal); E11.621 Type 2 diabetes mellitus with foot ulcer; L97.512 Non-pressure chronic ulcer of other part of right foot with fat layer exposed; E11.40 Type 2 diabetes mellitus with diabetic neuropathy, unspecified; K21.9 Gastro-esophageal reflux disease without esophagitis; Y83.5 Amputation of limb(s) as the cause of abnormal reaction of the patient, or of later complication, without mention of misadventure at the time of the procedure ==